=== PATIENT | female | born 1985 | race Asian ===

== ENCOUNTER 2018-01-24 23:47 | Observation (INO) | payer OTHER ==
[2018-01-25 00:46] LABS: BILIRUBIN,URINE NEGATIVE (NEGATIVE); GLUCOSE, URINE (UA) NEGATIVE (NEGATIVE); KETONES,URINE (UA) NEGATIVE (NEGATIVE); LEUKOCYTE ESTERASE, URINE NEGATIVE (NEGATIVE); NITRITE,URINE NEGATIVE (NEGATIVE); OCCULT BLOOD,URINE LARGE (NEGATIVE); PH,URINE 7.5 PH (5.0-7.5); PROTEIN,URINE NEGATIVE (NEGATIVE); UROBILINOGEN,URINE 0.2 (NORMAL) E.U./dL (NORMAL)
[2018-01-25 00:48] LABS: CLARITY,URINE SL. CLOUDY (CLEAR)
[2018-01-25 00:52] LABS: BACTERIA,URINE Rare /HPF (None Seen); RBC,URINE TNTC /HPF (0-5); SQUAMOUS EPITHELIAL CELL,UR RARE Squamous (<= Few)
[2018-01-25 00:59] LABS: BASOPHILS % (AUTO) 0.4 %; EOSINOPHILS # (AUTO) 0.2 10^3/uL (0.0-0.7); EOSINOPHILS % (AUTO) 2.2 %; HGB - HEMOGLOBIN 10.1 g/dL (12.0-16.0); LYMPHOCYTES # (AUTO) 1.5 10^3/uL (1.5-3.5); LYMPHOCYTES % (AUTO) 18.7 %; MEAN CORPUSCULAR HEMOGLOBIN 28.9 pg (27.0-31.0); MEAN CORPUSCULAR HGB CONC 33.3 g/dL (32.0-36.0); MEAN CORPUSCULAR VOLUME 86.9 fL (81.0-99.0); MEAN PLATELET VOLUME 7.6 fL (7.9-10.8); MONOCYTES # (AUTO) 0.5 10^3/uL (0.0-1.0); NEUTROPHILS # (AUTO) 5.9 10^3/uL (1.5-6.6); NEUTROPHILS % (AUTO) 72.7 %; PLT - PLATELET COUNT 217 10^3/uL (130-450); RED CELL DISTRIBUTION WIDTH 13.1 % (12.0-15.0); WHITE BLOOD COUNT 8.1 x10^3/uL (4.8-10.8)
[2018-01-25 01:07] LABS: CALCIUM 8.5 mg/dL (8.5-10.3); CREATININE 0.5 mg/dL (0.4-1.0)
[2018-01-25] MEDS ORDERED: SODIUM CHLORIDE FLUSH 0.9% 10 ML SYRINGE ONE ×2 (01:43→03:03)
[2018-01-25] MEDS ORDERED: MORPHINE PCA 50 MG IV PRN (02:04)
[2018-01-25] MEDS: LACTATED RINGERS 1,000 ML IV SCH ×2 (02:36→10:09)
[2018-01-25] MEDS ORDERED: ONDANSETRON 4 MG/2 ML VIAL IVP PRN (02:56)
[2018-01-25] MEDS: fentaNYL 100 MCG/2 ML VIAL IVP PRN ×3 (03:11→08:26)
--- NOTE | 2018-01-25 03:26 | PREOP HISTORY & PHYSICAL ---
DATE OF SERVICE: 01/25/2018 Physician: Júnior Purdy MD PATIENT IDENTIFICATION: The patient is a 32-year-old. She is G2, P1. She is 23.1 weeks. Her due d ate is 05/23/2017; this was determined by ultrasound. CHIEF COMPLAINT: Left flank pain. HISTORY OF PRESENT ILLNESS: The patient states that at 8 o'clock she developed sudden left flank shu n. She denies any previous episodes in the past. She denies contractions or bleeding at this time. She denies any pain or burning on urination. She has been seen by [facility] with initiation of OB care a t 11 weeks. She is noted to have gestational diabetes, which she has controlled with diet. She rela anamika her fastings are running in the 80s and her 2-hour postprandials are in the 100/teens. She has n ot taken any oral agents at this time. PAST MEDICAL HISTORY: Positive for gestational diabetes. PAST SURGICAL HISTORY: section. ALLERGIES: NONE KNOWN. CURRENT MEDICATIONS: vitamins. HABITS: The patient denies use of alcohol, tobacco, street or addictive drugs. SOCIAL HISTORY: The patient is [employer]. 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 FAMILY HISTORY: Strongly positive for diabetes. PHYSICAL EXAMINATION VITAL SIGNS: Temperature is 36.8, heart rate is 100, blood pressure is 122/69, respirations are 20, saturation is 100%. GENERAL: The patient is a well-developed, well-nourished female. She is in moderate distress. She lists her pain as being roughly 6/10. She does have some difficulty finding a comfortable position. HEENT: Pupils equal, round. Extraocular muscles are intact. There is no evidence of any scleral ic terus. Thyroid is not palpably enlarged. Mouth is clear. CARDIOVASCULAR: Regular rate and rhythm without murmurs. LUNGS: Lung becerra are clear without rales or wheezes ABDOMEN: Abdomen is 23 cm fundal height. The uterus is nontender. EXTREMITIES: She shows discreet marked left flank pain. She believes it is starting to move down to the groin with time. LABORATORY DATA: Electrolytes shows a mild hypokalemia at 3.3. Her glucose is 120. Sodium is 138. White count is 8.1, hemoglobin is 10.1, hematocrit is 30.4, platelets are 217. Urine shows large oc cult blood. Nitrites and leukocytes are both negative. RBCs are TNTC. WBCs are 0-3, rare squamous cells. ASSESSMENT AND PLAN: This is a 32-year-old G2, P1 female who is 23.1 weeks gestation with what appea rs to be classic renal lithiasis. At this particular time, will admit for pain control. We will ord er an ultrasound in the morning to check for evidence of dilatation. We will also place her on an MS SPRINKLER TENDER. TD: 01/25/2018 03:09
[2018-01-25] MEDS: MORPHINE 2 MG/ML CARPUJECT IVP PRN ×3 (04:40→09:46)
--- NOTE | 2018-01-25 14:20 | Ultrasound Report ---
Reason: left renal lithasis Procedure Date: 01/25/2018 Accession Number: [id number] / [id number] Procedure: US - Retroperitoneal CPT Code: FULL RESULT: EXAM: RENAL ULTRASOUND EXAM DATE: 01/25/2018 01:31 PM. CLINICAL HISTORY: Left renal lithiasis. COMPARISON: MRI lumbar spine 06/01/2012. TECHNIQUE: Real-time scanning was performed with static images obtained. FINDINGS: Right Kidney: 12.1 cm. Marked increased medullary echogenicity of the renal pyramids. Trace hydronephrosis. Left Kidney: 12.8 cm. Marked increased medullary echogenicity of the renal pyramids. Mild hydronephrosis. No calculi were identified on either side. Bladder: Bilateral jets seen. The bladder volume was 100 cc. Other: None. 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 The imaging differential includes renal papillary necrosis, renal tuberculosis, and extrapulmonary Pneumocystis carinii or MARGO infection in the immunocompromised patient. RADIA
--- NOTE | 2018-01-25 14:32 | Ultrasound Report ---
Reason: growth Procedure Date: 01/25/2018 Accession Number: [id number] / [id number] Procedure: US - OB F/U or Repeat CPT Code: FULL RESULT: EXAM: COMPLETE OBSTETRICAL ULTRASOUND EXAM DATE: 01/25/2018 01:45 PM. CLINICAL HISTORY: anatomic survey. COMPARISON: Retroperitoneal 01/25/2018 1:31 PM. TECHNIQUE: Real-time sonographic evaluation of the fetus performed by the parts clerk plant maintenance. Multiple client representative static images were saved for review. DATING: Established EGA 23 weeks 1 day with ALAN 05/23/2018 based on physician stated established due date. EGA 22 weeks 2 days with ALAN 05/26/2018 based on the current ultrasound. GENERAL EVALUATION Saba . Cardiac activity: 156 bpm. movement: Visualized. Presentation: Cephalic. Placenta: Posterior position. No evidence for previa. Amniotic fluid: LIDIA 15.4 MVP 4.5 cm. BIOMETRY Bi-Parietal Diameter (BPD): 5.3 cm, 22 weeks 6 days. Head Circumference (HC): 20.5 cm, 22 weeks 4 days. Abdominal Circumference (AC): 18.3 cm, 23 weeks 1 day. Femur Length (FL): 3.9 cm, 22 weeks 3 days. Estimated Weight: 541 g, 37th percentile for 23 weeks 1 day. MATERNAL STRUCTURES Uterus: Unremarkable. Cervix: Long and closed. Transabdominal length 4.0 cm. Free fluid: None. IMPRESSION: 1. Saba live intrauterine with gestational age 23 weeks 1 day based on physician provided last menstrual period. 2. Estimated weight is within expected limits for assigned dating. RADIA
[2018-01-25 15:38] VITALS: BP 106/55
--- NOTE | 2018-01-25 16:42 | PROVIDER PROGRESS NOTE ---
Subjective - Prog Note Date Prog Note Date: 01/25/18 Prog Note Time: 16:40 - Subjective Pt reports feeling: Improved (Pt passed a 2-3 mm stone feels marked i mprovement.) Objective - Vital Signs/Intake & Output Reviewed Vital Signs: Yes Vital Signs: Vital Signs x48h Temp Pulse Resp BP Pulse Ox 01/25/18 15:37 36.5 C 100 18 106/55 L 98 01/25/18 11:42 36.6 C 101 H 18 112/60 98 01/25/18 10:00 16 Intake & Output: Intake & Output 01/23/18 01/23/18 01/24/18 01/25/18 00:59 23:59 23:59 23:59 Intake Total 1423.75 Output Total 1525 Balance -101.25 - Objective Respiratory: positive: Chest non-tender, No respiratory distress Cardiovascular: positive: Regular rate & rhythm, No murmur Abdomen: positive: Non-tender, No organomegaly Back: positive: CVA tenderness (L) (minimsl left CVA tenderness) - Lab Results Fish Bones: 01/25/18 00:53 01/25/18 00:53 Other Labs: Lab Results x24hrs 01/25/18 01/25/18 01/25/18 Range/Units 00:53 00:53 00:00 WBC 8.1 (4.8-10.8) x10^3/uL RBC 3.50 L (4.20-5.40) 10^6/uL Hgb 10.1 L (12.0-16.0) g/dL Hct 30.4 L (37.0-47.0) % MCV 86.9 (81.0-99.0) fL MCH 28.9 (27.0-31.0) pg MCHC 33.3 (32.0-36.0) g/dL RDW 13.1 (12.0-15.0) % Plt Count 217 (130-450) 10^3/uL MPV 7.6 L (7.9-10.8) fL Neut # (Auto) 5.9 (1.5-6.6) 10^3/uL Lymph # (Auto) 1.5 (1.5-3.5) 10^3/uL [place] # (Auto) 0.5 (0.0-1.0) 10^3/uL Eos # (Auto) 0.2 (0.0-0.7) 10^3/uL Baso # (Auto) 0.0 (0.0-0.1) 10^3/uL Absolute Nucleated RBC 0.00 x10^3/uL Nucleated RBC % 0.0 /100WBC Sodium 138 (135-145) mmol/L Potassium 3.3 L (3.5-5.0) mmol/L Chloride 106 (101-111) mmol/L Carbon Dioxide 25 (21-32) mmol/L Anion Gap 7.0 (6-13) BUN 10 (6-20) mg/dL Creatinine 0.5 (0.4-1.0) mg/dL Estimated GFR (MDRD) 143 (>89) Glucose 120 H (70-100) mg/dL Calcium 8.5 (8.5-10.3) mg/dL Urine Color YELLOW Urine Clarity SL. CLOUDY (CLEAR) Urine pH 7.5 (5.0-7.5) PH Ur Specific [place] 1.015 (1.002-1.030) Urine Protein NEGATIVE (NEGATIVE) mg/dL Urine Glucose (UA) NEGATIVE (NEGATIVE) mg/dL Urine Ketones NEGATIVE (NEGATIVE) mg/dL Urine Occult Blood LARGE H (NEGATIVE) Urine Nitrite NEGATIVE (NEGATIVE) Urine Bilirubin NEGATIVE (NEGATIVE) Urine Urobilinogen 0.2 (NORMAL) (NORMAL) E.U./dL Ur Leukocyte Esterase NEGATIVE (NEGATIVE) Urine RBC TNTC H (0-5) /HPF Urine WBC 0-3 (0-5) /HPF Ur Squamous Epith Cells RARE Squamous (<= Few) Urine Bacteria Rare (None Seen) /HPF Urine Culture Comments NOT INDICATED Assessment/Plan - Problem List (2) Maternal renal lithiasis, current Impression: Pt passed stone feels much better. stone visulized Qualifiers: Trimester: second trimester Qualified Code(s): O26.832 - related renal disease, second trimester; N20.0 - Calculus of kidney
--- NOTE | 2018-01-25 19:21 | DISCHARGE SUMMARY ---
Physician: Júnior Purdy MD DATE OF ADMISSION: 01/25/2018 DATE OF DISCHARGE: 01/25/2018 ADMITTING DIAGNOSES 1. A 32-year-old G2, P1, female at 23.1 weeks. 2. Left flank pain. 3. Left renal lithiasis. DISCHARGE DIAGNOSES 1. A 32-year-old G2, P1, female at 23.1 weeks. 2. Left flank pain. 3. Left renal lithiasis. PROCEDURES: Retroperitoneal ultrasound,. PRESENTING HISTORY: The patient is a 32-year-old G2, P1, female, 32.1 weeks. She presented with essence den onset left flank pain started about 8 o'clock. She denies any previous episodes in the past. Sh e denies any bleeding. She denies any pain or burning on urination. She has been seen at [facility] with initiation of care at 11 weeks. She has been noted to have gestational diabetes, which is diet contr olled. She reports her fastings been running in the 80s and her 2-hour postprandials have been runni ng in the 110s. She is currently totally diet control. PHYSICAL EXAMINATION: On physical examination, she was noted to have left flank pain, tenderness, du plicating the pain she is complaining of. She states this is barely 6/10. LABORATORY DATA: CBC on admission showed a white count of 8.1, hemoglobin was 10.1, hematocrit was 3 0.4, platelets were 217. Potassium was decreased at 3.3. Creatinine was 0.5. Urine showed large oc cult blood. She had TNTC RBCs. She had rare WBCs. She was negative nitrite as well as leukocytes. The culture of the urine was a clean catch. IMAGING DATA: Ultrasound of the retroperitoneum demonstrated bilateral jets. The right kidney showe d some increased medullary echogenicity. The left kidney showed an increased echogenicity as well as a mild hydronephrosis. Their impression was that of a medullary nephrocalcinosis. HOSPITAL COURSE: The patient was admitted and started on IV fluids. She was also given an MS GOVERNMENT TEACHER fo r pain control. She passed her stone this evening, which was observed to be roughly by about 3 mm in size. Her pain is completely resolved at this time. We are discharging her to home today. I am gi ving her the next 2 days off. She is to report back to [facility] for her remainder of her OB care. cc: Júnior Glez, TD: 01/25/2018 18:00
--- NOTE | 2018-01-25 23:23 | Labor Flowsheet ---
Labor Flowsheet Datetime Report Generated by CPN: 01/25/2018 23:23 Datetime: 01/25/2018 23:06 VITAL SIGNS NBP Sys/Tosha/Mean (mmHg): 115 : 70 : 77 Pulse: 109 Datetime: 01/25/2018 23:04 SpO2 (%): 100
== END 2018-01-25 17:25 | disposition home or self-care (01) ==
LOC: WFO 23:47 → FBP 01-25 00:02 → WFO 01-25 02:15 → MS2 01-25 02:16
PROVIDERS: ADMIT Obstetrics & Gynecology; ATTEND Obstetrics & Gynecology
DX: O26.832 Pregnancy related renal disease, second trimester (principal); N13.2 Hydronephrosis with renal and ureteral calculous obstruction; O24.410 Gestational diabetes mellitus in pregnancy, diet controlled; Z3A.23 23 weeks gestation of pregnancy; Z83.3 Family history of diabetes mellitus
CPT/HCPCS: 36415; 76770; 76816; 80048; 81001; 85025; 96374; 96375; 96376; 99214; G0378; J7120; 87086

== ENCOUNTER 2019-06-19 21:53 | Outpatient (CLI) | payer OTHER | END 2019-06-19 21:54 | disposition critical access hospital (66) | LOC: EMS 21:53 | PROVIDERS: ATTEND Surgery | DX: R42 Dizziness and giddiness (principal); R11.2 Nausea with vomiting, unspecified | CPT/HCPCS: A0425; A0427 ==

== ENCOUNTER 2019-06-19 22:11 | Emergency (ER) | payer OTHER ==
--- NOTE | 2019-06-19 22:18 | ED Physician Documentation ---
PD HPI NVD - Stated complaint Stated Complaint: BACK PAIN, DIZZY - History obtained from History obtained from: Patient, EMS - History of Present Illness Timing - onset: How many hours ago Timing - details: Abrupt onset Pain level now: 5 (chronic back pain) Associated symptoms: No: Fever, Abdominal pain Worsened by: Moving Similar symptoms before: Has not had sx before - Additonal information Additional information: patient took ibuprofen for her chronic back pain approximately 2 hours ago, subsequently developed dizziness with sensation of room spinning around her, distinctly worse with movement of head and associated with nausea and vomiting. Review of Systems Constitutional: denies: Fever, Chills, Sweats Ears: denies: Ear pain Throat: denies: Sore throat Cardiac: reports: Reviewed and negative Respiratory: reports: Reviewed and negative GI: reports: Nausea, Vomiting. 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 - Present Medications Home Medications: Ambulatory Orders Medication Instructions Recorded Confirmed Oxymetazoline HCl [Afrin] 15 ml NS 1-2XD PRN 01/25/18 01/25/18 Vitamin [Trinatal Rx 1] 1 each PO DAILY 01/25/18 01/25/18 HYDROcod/ACETAM 5/325 [[place] 5/325] 1 - 2 ea PO Q6H PRN #15 tablet 06/19/19 Meclizine [Antivert] 25 mg PO Q6H PRN #20 tablet 06/19/19 Ondansetron Odt [Zofran] 4 mg TL Q6H PRN #10 tablet 06/19/19 - Allergies Allergies/Adverse Reactions: Allergies Allergy/AdvReac Type Severity Reaction Status Date / Time No Known Drug Allergies Allergy Verified 06/19/19 22:15 - Social History Smoking Status: Former smoker PD ED PE NORMAL - Vitals Vital signs reviewed: Yes - General General: Alert and oriented X 3, No acute distress (NAD at rest but with lying still and keeping eyes closed), Well developed/nourished - HEENT HEENT: PERRL, EOMI - Neck Neck: Supple, no meningeal sign - Cardiac Cardiac: RRR, No murmur - Respiratory Respiratory: No respiratory distress, Clear bilaterally - Abdomen Abdomen: Soft, Non tender - Derm Derm: Normal color, Warm and dry Results - Vitals Vitals: Vital Signs - 24 hr 06/19/19 06/20/19 22:15 00:11 Temperature 37.2 C Heart Rate 68 78 Respiratory 14 16 Rate Blood Pressure 109/71 108/70 O2 Saturation 99 99 Oxygen O2 Source Room air - Labs Labs: Laboratory Tests 06/19/19 06/19/19 22:33 22:33 WBC 12.8 H RBC 4.69 Hgb 13.9 Hct 41.6 MCV 88.7 MCH 29.6 MCHC 33.4 RDW 13.2 Plt Count 248 MPV 9.9 Neut # (Auto) 10.7 H Lymph # (Auto) 1.5 [place] # (Auto) 0.3 Eos # (Auto) 0.1 Baso # (Auto) 0.1 Absolute Nucleated RBC 0.00 Nucleated RBC % 0.0 Sodium 135 Potassium 4.0 Chloride 100 L Carbon Dioxide 23 Anion Gap 12.0 BUN 14 Creatinine 0.8 Estimated GFR (MDRD) 83 L Glucose 174 H Calcium 9.3 Total Bilirubin 0.6 AST 16 ALT 18 Alkaline Phosphatase 63 Total Protein 7.7 Albumin 4.4 Globulin 3.3 Albumin/Globulin Ratio 1.3 Lipase 22 PD MEDICAL DECISION MAKING - ED course Complexity details: reviewed results, re-evaluated patient, considered differential, d/w patient Departure - Departure Disposition: 01 Home, Self Care Clinical Impression: Back pain, Vertigo Condition: Good Instructions: Meclizine, ED Neck Back Pain General, ED Vertigo Unspecified Prescriptions: HYDROcod/ACETAM 5/325 [[place] 5/325] 1 - 2 ea PO Q6H PRN #15 tablet PRN Reason: Pain Meclizine [Antivert] 25 mg PO Q6H PRN #20 tablet PRN Reason: Vertigo Ondansetron Odt [Zofran] 4 mg TL Q6H PRN #10 tablet PRN Reason: Nausea / Vomiting Discharge Date/Time: 06/20/19 00:11
[2019-06-19] MEDS ORDERED: SODIUM CHLORIDE 0.9% 1,000 ML IV STA (22:19)
[2019-06-19] MEDS ORDERED: MECLIZINE 12.5 MG TABLET PO STA (22:19)
[2019-06-19 22:46] LABS: BASOPHILS # (AUTO) 0.1 10^3/uL (0.0-0.1); BASOPHILS % (AUTO) 0.4 %; EOSINOPHILS # (AUTO) 0.1 10^3/uL (0.0-0.7); EOSINOPHILS % (AUTO) 0.6 %; HGB - HEMOGLOBIN 13.9 g/dL (12.0-16.0); LYMPHOCYTES # (AUTO) 1.5 10^3/uL (1.5-3.5); LYMPHOCYTES % (AUTO) 11.8 %; MEAN CORPUSCULAR HEMOGLOBIN 29.6 pg (27.0-31.0); MEAN CORPUSCULAR HGB CONC 33.4 g/dL (32.0-36.0); MEAN CORPUSCULAR VOLUME 88.7 fL (81.0-99.0); MEAN PLATELET VOLUME 9.9 fL (7.9-10.8); MONOCYTES # (AUTO) 0.3 10^3/uL (0.0-1.0); MONOCYTES % (AUTO) 2.5 %; NEUTROPHILS # (AUTO) 10.7 10^3/uL (1.5-6.6); NEUTROPHILS % (AUTO) 84.2 %; PLT - PLATELET COUNT 248 10^3/uL (130-450); RED BLOOD COUNT 4.69 10^6/uL (4.20-5.40); RED CELL DISTRIBUTION WIDTH 13.2 % (12.0-15.0); WHITE BLOOD COUNT 12.8 x10^3/uL (4.8-10.8)
[2019-06-19 23:00] LABS: ALBUMIN 4.4 g/dL (3.2-5.5); ALBUMIN/GLOBULIN RATIO 1.3 (1.0-2.2); BILIRUBIN,TOTAL 0.6 mg/dL (0.2-1.0); CALCIUM 9.3 mg/dL (8.5-10.3); CREATININE 0.8 mg/dL (0.4-1.0); TOTAL PROTEIN 7.7 g/dL (6.7-8.2)
[2019-06-19] MEDS ORDERED: HYDROcod/ACETAM 5/325 MG TABLET PO STA (23:14)
[2019-06-20 00:13] VITALS: BP 108/70
== END 2019-06-20 00:11 | disposition home or self-care (01) ==
LOC: EDUNIT# → ED 22:11
DX: R42 Dizziness and giddiness (principal); M54.9 Dorsalgia, unspecified; G89.29 Other chronic pain; Z87.891 Personal history of nicotine dependence
CPT/HCPCS: 36415; 80053; 83690; 85025; 99283; 99284; A9270

== ENCOUNTER 2020-11-19 18:06 | Emergency (ER) | payer OTHER ==
--- NOTE | 2020-11-19 18:59 | ED Physician Documentation ---
History of Present Illness - Stated complaint Stated Complaint: HEAD PAIN - Chief complaint Chief Complaint: Neuro - History obtained from History obtained from: Patient - Additonal information Additional information: The patient presents with complaints of 2 days of a headache. When asked for the pain is located she points toward her right occipital region. The headache is intermittent lasting seconds to minutes. She describes it as a sharp, throbbing pain. She has had no associated vision changes, ringing in her ears or trouble hearing. She has had no fevers, chills or sweats. She was seen last month at an urgent care and was told that it was a migraine headache due to stress. She has not had any head injuries.Her last menstrual period was about 1 month ago. She took rizatriptan yesterday that had been prescribed by her PCP. This did not give her any relief. Review of Systems Constitutional: denies: Fever, Chills, Myalgias Eyes: denies: Loss of vision, Decreased vision, Photophobia Ears: denies: Loss of hearing, Ear pain, Tinnitus/ringing Nose: denies: Rhinorrhea / runny nose Cardiac: denies: Chest pain / pressure Respiratory: denies: Dyspnea GI: denies: Abdominal Pain, Nausea, Vomiting, Diarrhea : denies: Dysuria, Frequency Skin: denies: Rash Musculoskeletal: denies: Neck pain Neurologic: reports: Headache. 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 - Present Medications Home Medications: Ambulatory Orders Medication Instructions Recorded Confirmed Oxymetazoline HCl [Afrin] 15 ml NS 1-2XD PRN 01/25/18 01/25/18 Vitamin [Trinatal Rx 1] 1 each PO DAILY 01/25/18 01/25/18 HYDROcod/ACETAM 5/325 [[place] 5/325] 1 - 2 ea PO Q6H PRN #15 tablet 06/19/19 Meclizine [Antivert] 25 mg PO Q6H PRN #20 tablet 06/19/19 Ondansetron Odt [Zofran] 4 mg TL Q6H PRN #10 tablet 06/19/19 - Allergies Allergies/Adverse Reactions: Allergies Allergy/AdvReac Type Severity Reaction Status Date / Time No Known Drug Allergies Allergy Verified 11/19/20 18:12 - Social History Does the pt smoke?: No Smoking Status: Never smoker Does the pt drink ETOH?: No Does the pt have substance abuse?: No - Immunizations Immunizations are current?: Yes PD ED PE NORMAL - Vitals Vital signs reviewed: Yes - General General: Alert and oriented X 3 - HEENT HEENT: Atraumatic, PERRL - Neck Neck: Supple, no meningeal sign, No JVD - Cardiac Cardiac: RRR, No murmur, No gallop, No rub - Respiratory Respiratory: No respiratory distress - Abdomen Abdomen: Normal bowel sounds - Derm Derm: Normal color, Warm and dry - Extremities Extremities: No deformity, No edema - Neuro Neuro: Alert and oriented X 3, clinic assistant 2-12 intact, No motor deficit, No sensory deficit, Normal speech - Psych Psych: Normal mood PD ED PE EXPANDED - HEENT HEENT: Other (Mild, focal posterior scalp tenderness) Results - Vitals Vitals: Vital Signs - 24 hr 11/19/20 18:12 Temperature 36.3 C L Heart Rate 77 Respiratory 16 Rate Blood Pressure 122/79 O2 Saturation 100 Oxygen O2 Source Room air - Labs Labs: Laboratory Tests 11/19/20 19:17 Urine HCG, Qual NEGATIVE PD MEDICAL DECISION MAKING - ED course Complexity details: reviewed results, re-evaluated patient, considered differential, other ED course: The patient appears to be suffering from a tension headache. 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 She was treated in the emergency department with intramuscular Toradol and tolerated this. As she did not get relief from her rizatriptan I suggested she discontinue the use of this in the future. I encouraged her to have close follow-up with her PCP and to call or return if her symptoms worsen or if new symptoms were to develop. Departure - Departure Disposition: 01 Home, Self Care Clinical Impression: Headache Qualifiers: Headache type: tension-type Headache chronicity pattern: acute headache Intractability: not intractable Qualified Code(s): G44.209 - Tension-type headache, unspecified, not intractable Condition: Stable Record reviewed to determine appropriate education?: Yes Instructions: ED Headache Tension
[2020-11-19 19:31] LABS: HCG UR QUAL NEGATIVE
[2020-11-19] MEDS ORDERED: KETOROLAC 60 MG/2 ML VIAL IM STA (19:44)
[2020-11-19 20:12] VITALS: BP 109/72
== END 2020-11-19 20:12 | disposition home or self-care (01) ==
LOC: ED 18:06
DX: G44.209 Tension-type headache, unspecified, not intractable (principal)
CPT/HCPCS: 81025; 96372; 99283; 99284

== ENCOUNTER 2021-10-03 08:00 | Outpatient (CLI) | payer OTHER ==
[2021-10-03 22:41] LABS: BACTERIAL VAGINOSIS DNA NEGATIVE (NEGATIVE); CANDIDA GLABRATA DNA NEGATIVE (NEGATIVE); CANDIDA GROUP DNA POSITIVE (NEGATIVE); CANDIDA KRUSEI DNA NEGATIVE (NEGATIVE); TRICHOMONAS VAGINALIS DNA POSITIVE (NEGATIVE)
[2021-10-03 23:34] LABS: CHLAMYDIA TRACHOMATIS DNA NEGATIVE (NEGATIVE); NEISSERIA GONORRHOEAE DNA NEGATIVE (NEGATIVE)
[2021-10-04 00:36] LABS: TRICHOMONAS VAGINALIS DNA POSITIVE (NEGATIVE)
== END 2021-10-03 23:59 | disposition home or self-care (01) ==
LOC: LAB.N 08:00
PROVIDERS: ATTEND Registered Nurse
DX: N89.8 Other specified noninflammatory disorders of vagina (principal)
CPT/HCPCS: 81514; 87491; 87591; 87661

== ENCOUNTER 2022-04-03 14:00 | Outpatient (CLI) | payer OTHER ==
[2022-04-03 14:41] VITALS: BP 98/60
--- NOTE | 2022-04-03 14:41 | SLEEP CARE CONSULTATION ---
Information from patient questionnaire entered by Yaa Carlos. I have reviewed and concur with the information entered by Yaa Carlos. This document represents the service I personally performed and the decisions made by me, Brenda Acosta ARNP. History of Present Illness Service Date and Time: 04/03/2022 1400 Reason for Visit: New patient Chief Complaint: reports: Insomnia, Unrefreshed sleep, Snoring, Excessive daytime sleepiness, Observed pauses in breathing, Fatigue, Frequent awakenings at night Date of Onset: 10 YRS Usual bedtime: 10PM Time it takes to fall asleep: 10MIN Snores at night: Yes Observed to quit breathing while asleep: Yes Sleeps alone due to snoring: No Number of times waking at night: 3 Reasons for waking at night: reports: Snoring, Gasping for air, Bathroom, Other (UNKNOWN REASONS; throat day). denies: Choking Toss, Turn, or Twitch while sleeping: Yes Recalls having dreams: No Usually gets out of bed at: 6-630AM Feels refreshed in the morning: No Morning headache: Yes (1 time a week; RESOLVES AFTER COFFEE) Sleepy or fatigued during the day: Yes Ever fallen asleep while driving: Yes (drowsy driving but no accidents) Takes day naps: No Dreams during day naps: No Prior sleep studies: No Additional HPI information: I had the pleasure of seeing WILLAM RODRIGUEZ today regarding the possibility of her having a sleep disorder. Her current complaints are insomnia, unrefreshed sleep, snoring, excessive daytime sleepiness, observed pauses in breathing, fatigue and frequent night awakenings. She does not feel that she sleeps well. She is tired all the times. She feels like she does not sleep, even though her eyes are closed, then she will wake up "out of nowhere" with a dry throat. Her told her when they were together 2 years ago that she snored loudly and would stop breathing at night. - Parasomnia Symptoms Ever been unable to move upon waking from sleep: Yes (last time was last year in Apr; 2 x a year) Walks in sleep: No Talks in sleep: Yes Ever acted out dreams in sleep: No Ever felt weak in the knees when startled or emotional: Yes (has not fallen to ground) Bothered by creepy, crawly, restless sensations in legs: Yes (when in bed and trying to fall asleep) Problems with memory or concentration: Yes (both) Subjective Initial [place] Sleepiness Scale score: 18 (04/02/22) Past Medical History Past Medical History: reports: Anxiety, Depression, Other (BACK PAIN; bladder incontinence) Social History 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 Patient is and lives in [place]. Have you smoked in the past 12 months: No Alcohol use: Yes Alcohol amount and frequency: 2 DRINKS OCCASSIONALLY Caffeine use: Yes Caffeine amount and frequency: 16OZ EVERYDAY Family History Family history of sleep disordered breathing: Yes Family Hx Sleep Apnea: Mother: Snoring, Sleep apnea - Untreated Allergies and Home Medications Known drug allergies: No Drug allergies reviewed: Yes (NKDA) Home medication list reviewed: Yes (no daily medications at this time) Review of Systems Weight loss over past 5 years: 15 Cardiovascular: denies: high blood pressure Gastrointestinal: denies: heartburn Urinary: reports: incontinence, frequency, urgency Neurological: reports: headaches. denies: head trauma Psychiatric: reports: anxiety, depression Ear/Nose/Throat: reports: tonsillectomy. denies: wisdom teeth removed Endocrine: denies: thyroid disease Musculoskeletal: reports: back pain Physical Exam Vital signs obtained and entered by: YAA Armenta MA Blood Pressure: 98/60 (LEFT ARM) Cuff size: regular Heart Rate: 104 O2 Saturation: 97 Height: 5 ft 2 in Weight: 146 lb 9.6 oz Body Mass Index: 26.8 BMI Classification: Overweight Neck circumference: 14 Mouth and throat: narrow oropharynx Soft palate: long Hard palate: normal Uvula: normal Uvula visualization: 50% Mallampati Class II Tongue: enlarged in size with teeth kapadia on lateral edges Tonsils: absent bilaterally Neck: normal w/o lymphadenopathy or thyromegaly Heart: regular rate and rhythm Lungs: clear bilaterally Impression and Plan 1. Suspected Obstructive Sleep Apnea-Hypopnea Syndrome, as suggested by a history of loud and irregular snoring, observed cessation of breath while asleep, gasping or choking in sleep, morning headache, frequent awakening during the night, unrefreshed sleep, cognitive impairment, and excessive daytime sleepiness. Narrow oropharynx and obesity are common predisposing factors for obstructive sleep apnea-hypopnea syndrome. I recommend proceeding to polysomnography to confirm the diagnosis and to assess severity. If the patient has significant sleep disordered breathing, a manual CPAP titration study will also be performed to find the optimal treatment pressure. I informed the patient of what the sleep studies involve and after some discussion, obtained agreement to proceed. The pathophysiology of obstructive sleep apnea-hypopnea syndrome was discussed with the patient and health risks of cardiovascular and cerebrovascular disease if not treated. Risks of drowsy driving discussed in detail and patient advised to avoid long distance driving and to loin puller at the first sign of drowsiness. Patient agreed to plan. * Schedule polysomnography * Avoid long distance driving or driving when feeling sleepy. * Avoid alcohol, sedative and muscle relaxant around bedtime. * Attempt to lose weight. * Review instructions provided by trained office staff on how to prepare for the sleep study. * Return for follow-up after sleep study completed. Counseling Topics: Weight loss health impact Visit Type: In Office Time Spent with Patient (minutes): 32 Provider Statement: I spent 100% of the Face to Face Visit with the patient with greater than 50% spent counseling the patient and coordination of care.
== END 2022-04-03 14:01 | disposition home or self-care (01) ==
LOC: SC 14:00
PROVIDERS: ATTEND Nurse Practitioner Family
DX: R06.83 Snoring (principal); R06.81 Apnea, not elsewhere classified; G47.8 Other sleep disorders; R51.9 Headache, unspecified; R41.89 Other symptoms and signs involving cognitive functions and awareness; G47.10 Hypersomnia, unspecified
CPT/HCPCS: 99203; 99212

== ENCOUNTER 2022-05-13 08:48 | Outpatient (CLI) | payer OTHER | END 2022-05-13 08:49 | disposition home or self-care (01) | LOC: SC 08:48 | PROVIDERS: ATTEND Nurse Practitioner Family | DX: R09.02 Hypoxemia (principal) | CPT/HCPCS: 95806 ==

== ENCOUNTER 2022-06-17 08:31 | Outpatient (CLI) | payer OTHER ==
[2022-06-17 09:01] VITALS: BP 100/62
--- NOTE | 2022-06-17 09:01 | SLEEP CARE CONSULTATION ---
Information from patient questionnaire entered by Varsha Carlos. I have reviewed and concur with the information entered by Varsha Carlos. This document represents the service I personally performed and the decisions made by , Brenda Acosta ARNP. History of Present Illness Service Date and Time: 06/17/2022830 Initial [place] Sleepiness Scale score: 18 (04/02/22) Current [place] Sleepiness Scale score: 21 (06/17/22) Additional HPI information: WILLAM RODRIGUEZ returns for follow up and results of the recently performed home sleep study. The patient was informed of the following findings: No significant sleep disordered breathing with an average AHI of 3.7 and herminia oxygen saturation of 86%. Supine AHI 8.8. I explained the pathophysiology behind obstructive sleep apnea. Patient does not have sleep apnea and was advised how weight gain could increase the risk of developing sleep apnea in the future. I strongly encouraged the patient to lose weight. Patient does not have significant sleep disordered breathing but has el evated AHI in supine position so advised positional therapy. Methods to achieve positional management therapy were discussed; such as, positioning with pillows, wearing a T-shirt with tennis balls sewn into the back or other commercially available products. Patient has light snoring. Snoring can be reduced by weight loss. Weight loss is best achieved with diet consult. Patient instructed to contact PCP for referral. Snoring can also be treated with an oral appliance from a dentist. Advised to check insurance coverage. In addition, an ENT evaluation can be do to see if other treatment is indicated. Patient does not drink alcohol. Patient was cautioned about risks of drowsy driving until sleepiness symptoms resolve. Sleep Study - Results Type of Sleep Study: Home sleep study (COMPLETED 05/13/22) Prior sleep studies: No Polysomnography/Home Sleep Study results: Physician Impression: The quality of the study is good. The length of the study is adequate (> 240 minutes). Please also see the tabulated and graphic data. 1. No significant sleep disordered breathing, with an AHI of 3.7/hr and herminia SaO2 of 86%. During the study, the patient had 24 apneas (24 obstructive, 0 central, 0 mixed) and 10 hypopneas. The longest episode lasted 72.0 seconds. The few respiratory events occurred almost exclusively during supine sleep (supine AHI was 8.8 and non-supine, 0.98). 2. Hypoxemia (ICD-10 R09.02), minimal, with the lowest oxygen saturation of 86 % and 0.2 minutes with SaO2 under 90%. Baseline oxygen saturation was normal (Average oxygen saturation was 96%). Allergies and Home Medications Known drug allergies: No Drug allergies reviewed: Yes Home medication list reviewed: Yes (ibuprofen, prn) Review of Systems Review of systems same as previous: Yes (epidural spinal injection in lower back (June 08)) Physical Exam Vital signs obtained and entered by: VARSHA Armenta MA Blood Pressure: 100/62 (LEFT ARM) Cuff size: regular Heart Rate: 99 O2 Saturation: 69 Height: 5 ft 2 in Weight: 156 lb 6.4 oz Body Mass Index: 28.5 BMI Classification: Overweight Impression and Plan 1. Suspected Obstructive Sleep Apnea-Hypopnea Syndrome, as suggested by a history of loud and irregular snoring, observed cessation of breath while asleep, gasping or choking in sleep, morning headache, frequent awakening during the night, unrefreshed sleep, cognitive impairment, and excessive daytime sleepiness. Her HST was negative with an elevated supine AHI of 8.8. Patient did not feel she slept most of the night, that she was lying awake. Because of her symptoms and elevated supine AHI, I recommend proceeding to polysomnography to confirm the diagnosis and to assess severity. I obtained agreement to proceed. The pathophysiology of obstructive sleep apnea-hypopnea syndrome was discussed with the patient and health risks of cardiovascular and cerebrovascular disease if not treated. Risks of drowsy driving discussed in detail and patient advised to avoid long distance driving and to puller over at the first sign of drowsiness. Patient agreed to plan. * Schedule polysomnography * Avoid long distance driving or driving when feeling sleepy. * Avoid alcohol, sedative and muscle relaxant around bedtime. * Attempt to lose weight. * Review instructions provided by trained office staff on how to prepare for the sleep study. * Return for follow-up after sleep study completed. Counseling Topics: Weight loss health impact Visit Type: In Office Time Spent with Patient (minutes): 21 Provider Statement: I spent 100% of the Face to Face Visit with the patient with greater than 50% spent counseling the patient and coordination of care.
== END 2022-06-17 08:32 | disposition home or self-care (01) ==
LOC: SC 08:31
PROVIDERS: ATTEND Nurse Practitioner Family
DX: R06.83 Snoring (principal); G47.8 Other sleep disorders; R06.81 Apnea, not elsewhere classified; G47.10 Hypersomnia, unspecified; E66.3 Overweight; Z68.25 Body mass index [BMI] 25.0-25.9, adult
CPT/HCPCS: 99212; 99213

== ENCOUNTER 2022-08-10 19:30 | Outpatient (CLI) | payer OTHER | END 2022-08-10 19:31 | disposition home or self-care (01) | LOC: SC 19:30 | PROVIDERS: ATTEND Nurse Practitioner Family | DX: R06.83 Snoring (principal); G47.8 Other sleep disorders; R06.81 Apnea, not elsewhere classified; G47.10 Hypersomnia, unspecified; F32.A Depression, unspecified; E66.3 Overweight; Z68.26 Body mass index [BMI] 26.0-26.9, adult | CPT/HCPCS: 95810 ==

== ENCOUNTER 2022-08-21 13:40 | Outpatient (CLI) | payer OTHER ==
--- NOTE | 2022-08-21 13:57 | SLEEP CARE CONSULTATION ---
Information from patient questionnaire entered by Varsha Carlos. I have reviewed and concur with the information entered by Varsha Carlos. This document represents the service I personally performed and the decisions made by , Brenda Acosta ARNP. History of Present Illness Service Date and Time: 08/21/2022 1340 Initial [place] Sleepiness Scale score: 18 (04/02/22) Current [place] Sleepiness Scale score: 20 (08/21/22) Additional HPI information: WILLAM RODRIGUEZ returns for follow up and results of the recently performed polysomnography. The patient was informed of the following findings: No significant sleep disordered breathing with an average AHI of 2.4 and herminia oxygen saturation of 91%. I explained the pathophysiology behind obstructive sleep apnea. Patient does not have sleep apnea and was advised how weight gain could increase the risk of developing sleep apnea in the future. I strongly encouraged the patient to lose weight. Patient has minimal snoring. Snoring can be reduced by weight loss. Weight loss is best achieved with diet consult. Patient instructed to contact PCP for referral. Snoring can also be treated with an oral appliance from a dentist. Advised to check insurance coverage. In addition, an ENT evaluation can be do to see if other treatment is indicated. Patient was cautioned about risks of drowsy driving until sleepiness symptoms resolve. Sleep Study - Results Type of Sleep Study: Polysomnography (COMPLETED 08/10/22) Prior sleep studies: No Polysomnography/Home Sleep Study results: IMPRESSION: The quality of the study is good. The patient had normal sleep efficiency. The sleep architecture was relatively normal as well considering the first night effect. Respiratory monitoring showed no significant sleep disordered breathing (AHI = 2.4) or hypoxia (herminia oxygen saturation of 91%). The few respiratory events occurred mainly during supine REM sleep (supine AHI = 4.2; non-supine = 0.00). No audible snore. There was no significant periodic leg movement of sleep. Cardiac rhythm was normal sinus rhythm without significant arrhythmia. No abnormal behavior (parasomnia) observed during the night. Allergies and Home Medications Known drug allergies: No Drug allergies reviewed: Yes Home medication list reviewed: Yes (no changes) Allergy and home medication list: Allergies No Known Drug Allergies Allergy (Verified 08/21/22 10:49) Review of Systems Review of systems same as previous: Yes (no changes) Physical Exam Vital signs obtained and entered by: VARSHA Armenta MA Blood Pressure: 100/60 (LEFT ARM) Cuff size: regular Heart Rate: 85 O2 Saturation: 99 Height: 5 ft 2 in Weight: 152 lb 6.4 oz Body Mass Index: 27.8 BMI Classification: Overweight Impression and Plan Snoring but no significant sleep disordered breathing. Patient advised that often weight loss will reduce snoring as well as apnea risk. An oral appliance can also be used for snoring. This would require a dental consultation. Patient cautioned not to use other online appliances as can cause bite issues. A list of accredited dentists in [facility] and one local dentist who makes oral appliances is available in office as needed. Patient is advised to check if insurance will cover. An ENT consult can also be helpful to determine if any other treatment is an option. * Attempt to lose weight * Avoid alcohol consumption near bedtime * The patient is cautioned about driving until sleepiness is completely resolved. * Return as needed for follow up. Counseling Topics: Sleeping position, Weight loss health impact Visit Type: In Office Time Spent with Patient (minutes): 10 Provider Statement: I spent 100% of the Face to Face Visit with the patient with greater than 50% spent counseling the patient and coordination of care.
[2022-08-21 14:08] VITALS: BP 100/60
== END 2022-08-21 13:41 | disposition home or self-care (01) ==
LOC: SC 13:40
PROVIDERS: ATTEND Nurse Practitioner Family
DX: R06.83 Snoring (principal); E66.3 Overweight; Z68.27 Body mass index [BMI] 27.0-27.9, adult
CPT/HCPCS: 99212

== ENCOUNTER 2023-04-21 08:00 | Outpatient (CLI) | payer OTHER | END 2023-04-21 23:59 | disposition home or self-care (01) | LOC: LAB 08:00 | PROVIDERS: ATTEND Urology | DX: N30.90 Cystitis, unspecified without hematuria (principal) | CPT/HCPCS: 87086 ==

== ENCOUNTER 2023-05-03 06:12 | Day surgery (SDC) | payer OTHER ==
[2023-05-03] MEDS: LACTATED RINGERS 1,000 ML IV ONE ×2 (06:30→08:15)
[2023-05-03 06:40] LABS: HCG UR QUAL NEGATIVE
[2023-05-03] MEDS ORDERED: CIPROFLOXACIN 400 MG/200 ML 400 MG/200 ML BAG IV ONE (06:50)
--- NOTE | 2023-05-03 06:57 | ANESTHESIA ---
Pre-Anesthesia VS, & Labs - Diagnosis LEFT URETERAL - Procedure CYSTO, URETEROSCOPY, LASER LITHO, STENT Vital Signs: Temp Pulse Resp BP Pulse Ox O2 Flow Rate 36.0 C L 76 12 103/67 99 05/03/23 06:20 05/03/23 06:20 05/03/23 06:20 05/03/23 06:20 05/03/23 06:20 Height: 5 ft 3 in Weight (kg): 67 kg Body Mass Index: 26.2 BMI Classification: Overweight - Is Patient ?: No Home Medications and Allergies Home Medications: Ambulatory Orders Etonogestrel/Ethinyl Estradiol [Nuvaring Vaginal Ring] 1 vag ring VG DAILY 04/26/23 Etonogestrel/Ethinyl Estradiol [Nuvaring Vaginal Ring] 1 vag ring VG DAILY 04/26/23 Allergies/Adverse Reactions: Allergies Allergy/AdvReac Type Severity Reaction Status Date / Time No Known Drug Allergies Allergy Verified 05/03/23 06:36 Anes History & Medical History - Anesthetic History Anesthesia Complications: reports: No previous complications Family history of Anesthesia Complications: Denies Family history of Malignant Hyperthermia: Denies - Medical History Cardiovascular: reports: None Pulmonary: reports: None Gastrointestinal: reports: None Urinary: reports: Kidney stones Neuro: reports: None Musculoskeletal: reports: Chronic back pain Endocrine/Autoimmune: reports: None Blood Disorders: reports: None Skin: reports: None Smoking Status: Never smoker (VAPES) Psychosocial: reports: Alcohol (OCCASIONALLY) - Surgical History Eyes Ears Nose Throat (EENT): reports: Tonsil/Adenoidectomy Gynecologic: reports: section Results - EKG Results EKG Comparison: Reviewed EKG Exam General: Alert Dental: WNL Mouth Openin Fingerbreadth Mallampati classification: II Thyromental Distance: 4-6 cm Respiratory: Lungs clear Cardiovascular: Regular rate Plan Anesthesia Type: General Consent for Procedure(s) Verified and Reviewed: Yes Code Status: Attempt Resuscitation ASA classification: 2-Mild systemic disease Is this case an emergency?: No
[2023-05-03] MEDS ORDERED: ePHEDrine 50 MG/ML VIAL IVP PRN (07:03)
[2023-05-03] MEDS ORDERED: HYDROmorphone 0.5 MG/0.5 ML SYRINGE IVP PRN (07:03)
[2023-05-03] MEDS ORDERED: ATROPINE ABBOJECT 1 MG/10 ML SYRINGE IVP PRN (07:03)
[2023-05-03] MEDS ORDERED: fentaNYL 100 MCG/2 ML VIAL IVP PRN (07:03)
[2023-05-03] MEDS ORDERED: ONDANSETRON 4 MG/2 ML VIAL IVP PRN ×2 (07:03→08:29)
[2023-05-03] MEDS ORDERED: NALOXONE 0.4 MG/ML VIAL IVP PRN (07:03)
[2023-05-03] MEDS ORDERED: iohexoL-240 10 ML VIAL IVP ONE (07:10)
[2023-05-03] MEDS ORDERED: LIDOCAINE 2% URO-JET 5 ML SYRINGE UR ONE (07:11)
[2023-05-03] MEDS ORDERED: LIDOCAINE-PF 2% 10 ML AMP SUBQ ONE (07:16)
[2023-05-03] MEDS ORDERED: fentaNYL 100 MCG/2 ML VIAL ONE (07:16)
[2023-05-03] MEDS ORDERED: PROPOFOL 200 MG/20 ML VIAL IVP ONE (07:16)
[2023-05-03] MEDS ORDERED: MIDAZOLAM 2 MG/2 ML VIAL ONE (07:16)
[2023-05-03] MEDS ORDERED: DEXAMETHASONE 4 MG/ML VIAL ONE (07:17)
[2023-05-03] MEDS ORDERED: ONDANSETRON 4 MG/2 ML VIAL ONE (07:17)
[2023-05-03] MEDS ORDERED: KETOROLAC 30 MG/ML VIAL ONE (07:55)
[2023-05-03] MEDS ORDERED: LACTATED RINGERS 1,000 ML IV SCH (08:00)
[2023-05-03] MEDS ORDERED: HYDROcod/ACETAM 5/325 MG TABLET PO PRN (08:29)
--- NOTE | 2023-05-03 08:35 | Discharge Plan ---
Discharge Plan Problem Reviewed?: Yes Disposition: Home, Self Care Condition: Good Prescriptions: Docusate Sodium 100Mg Capsule [Colace 100Mg Capsule] 100 mg PO DAILY #7 cap HYDROcod/ACETAM 5/325 [[place] 5/325] 1 tab PO Q4H PRN #10 tablet PRN Reason: Pain Diet: Regular Activity Restrictions: No Restrictions Shower Restrictions: No Driving Restrictions: No Instruction Topics: Stents Ureteral Additional Instructions or Follow Up instructions: You will be contacted for follow-up in [address] Li No Smoking: If you smoke, Please STOP! Call for help.
--- NOTE | 2023-05-03 08:39 | OPERATIVE REPORT ---
Operative Report - General Procedure Date: 05/03/23 Planned Procedure: Cystoscopy, left ureteroscopy, laser lithotripsy, stent exchange Pre-Op Diagnosis: Left ureteral stone Procedure Performed: Cystoscopy, left ureteroscopy, laser lithotripsy, stent exchange Post Op Diagnosis: Left ureteral stone - Procedure Note Primary Surgeon: Guillermo Anesthesia Provider: GYPSY Martinez Anesthesia Technique: General LMA Pathology: none Indications: Left proximal ureteral stone and stent placed for sepsis in [place] Findings: Left proximal radiopaque 6 mm ureteral stone dusted Complications: none - Other Other Information/Narrative: After informed consent was obtained the patient was brought to the OR and laid in the supine position. At that point time the patient was anesthetized per [facility] protocols and placed in the dorsolithotomy position. She was prepped and draped in the usual sterile fashion. A formal timeout was performed reconfirming the patient, procedure and lateralit y. A 22 [place] cystoscope was advanced easily into the urinary bladder, the bladder was inspected and full and no masses lesions or other concerns were identified. There was some mild ecchymosis to her posterior bladder wall consistent with stent irritation. There was left ureteral stent emanating from the left ureteral orifice. A sensor wires placed next to this wire up into the kidney. Under fluoroscopic guidance we could see she had a 6 mm proximal radiopaque ureteral stone. Her old stent was grasped and removed. A flexible ureteroscope was advanced next the wire up into the proximal ureter where the stone was identified. Using a 272 m laser fiber at a power of 0.8 and a rate of 8 we dusted the stone into small pieces. We then cleared the kidney and the ureter from any other stones. There were no radiopacities remaining at the end of the procedure. A 6 [place] 24 cm double-J ureteral stent was placed with good curling noted in the kidney and good curling noted in the bladder. The bladder was emptied and a Uro-Jet was placed. The string on the stent was taped using a Tegaderm to the suprapubic area. This included the procedure and the patient tolerated the procedure well. All counts were correct. She was brought to the PACU without further incident. She will follow-
[2023-05-03 09:03] VITALS: O2SAT 100
[2023-05-03 09:14] VITALS: BP 106/72
--- NOTE | 2023-05-03 12:51 | XRAY Report ---
PROCEDURE: OR C-Arm Procedure INDICATIONS: STONES FLUORO TIME: 0.01 MIN TECHNIQUE: Single fluoroscopic image from C-arm is provided showing the left abdomen region of intere st COMPARISON: None. FINDINGS/IMPRESSION: Single fluoroscopic image of the left abdomen is provided. It is not possible to discern the presence or absence stone on the single fluoroscopic image provided. Partially visualized Double-J catheter i s noted. Referred to surgical note for procedure details and findings. air kerma: 1.7mGy Reviewed by: Pedrito Campos MD on 05/03/2023 12:50 PM PST Approved by: Pedrito Campos MD on 05/03/2023 12:50 PM PST Station ID: [id number]
== END 2023-05-03 06:13 | disposition home or self-care (01) ==
LOC: SDS 06:12
PROVIDERS: ATTEND Urology
DX: N20.1 Calculus of ureter (principal); F17.290 Nicotine dependence, other tobacco product, uncomplicated; Z32.02 Encounter for pregnancy test, result negative
CPT/HCPCS: 52356; 81025; C1758; C2617; J7120; Q9966